=== PATIENT | male | born 1935 | race Caucasian/White ===

== ENCOUNTER 2018-05-31 17:54 | Inpatient (IN) | payer MEDICARE ==
--- NOTE | 2018-05-31 18:38 | EDM.PDOC ---
ED HPI GENERAL MEDICAL PROBLEM - General Chief Complaint: General Stated Complaint: POSSIBLE SEPSIS Time Seen by Provider: 05/31/18 18:22 Source of Information: Reports: Patient, Family History Limitations: Reports: No Limitations - History of Present Illness INITIAL COMMENTS - FREE TEXT/NARRATIVE: Has had increased confusion over the last 2 days He has infection to his left lower leg He has a fever Denies chest pain, shortness of breath; no calf pain (neg janice's) Is eating and drinking. Onset: Gradual Severity: Moderate Improves with: Reports: None Worsens with: Reports: None Left Leg Pain Score (Numeric/FACES): 6 - Related Data Allergies Allergy/AdvReac Type Severity Reaction Status Date / Time latex Allergy Rash Verified 05/31/18 18:25 Home Meds: Home Meds Bumetanide 1 mg PO DAILY 05/31/18 [History] Fluticasone/Vilanterol [Breo Ellipta 200-25 Mcg INH] 1 puff INH DAILY 05/31/18 [ History] Gabapentin [Neurontin] 300 mg PO TID 05/31/18 [History] Losartan [Cozaar] 100 mg PO DAILY 05/31/18 [History] Spironolactone [Aldactone] 25 mg PO DAILY 05/31/18 [History] Warfarin Sodium 5 mg PO DAILY 05/31/18 [History] acetaZOLAMIDE [Diamox] 250 mg PO BID 05/31/18 [History] Past Medical History HEENT History: Reports: Impaired Vision Cardiovascular History: Reports: Afib Respiratory History: Reports: COPD - Past Surgical History Musculoskeletal Surgical History: Reports: Hip Replacement Social & Family History - Tobacco Use Smoking Status *Q: Never Smoker - Caffeine Use Caffeine Use: Reports: Coffee - Recreational Drug Use Recreational Drug Use: No ED ROS GENERAL - Review of Systems Review Of Systems: See Below Constitutional: Reports: Fever, Chills Respiratory: Reports: No Symptoms Cardiovascular: Reports: No Symptoms GI/Abdominal: Reports: No Symptoms : Reports: No Symptoms Musculoskeletal: Reports: Leg Pain (lower left) Skin: Reports: Change in Color, Other (left LE, red, tender and swollen) Neurological: Reports: Confusion ED EXAM, GENERAL - Physical Exam Exam: See Below Exam Limited By: No Limitations General Appearance: Alert, Other (mild confusion) Eye Exam: Bilateral Eye: EOMI, PERRL Throat/Mouth: Normal Inspection, Normal Gums, Normal Oropharynx Head: Atraumatic, Normocephalic Neck: Normal Inspection, Supple, Non-Tender, Full Range of Motion Respiratory/Chest: No Respiratory Distress, Lungs Clear, Normal Breath Sounds, No Accessory Muscle Use, Chest Non-Tender Cardiovascular: Regular Rate, Rhythm, Other (bilateral LE edema, 2+ pitting) Peripheral Pulses: 1+: Posterior Tibial (L), Posterior Tibial (R), 3+: Dorsalis Pedis (L), Dorsalis Pedis (R) GI/Abdominal: Normal Bowel Sounds, Non-Tender Back Exam: Normal Inspection, Full Range of Motion Extremities: Leg Pain, Increased Warmth, Redness (LLE) Neurological: Alert, No Motor/Sensory Deficits, Confused Psychiatric: Normal Affect, Normal Mood Skin Exam: Warm, Dry, Intact Course - Vital Signs Last Recorded V/S: Last Vital Signs Temp 101.2 F H 05/31/18 19:25 Pulse 125 H 05/31/18 20:00 Resp 18 05/31/18 20:00 BP 140/74 05/31/18 20:00 Pulse Ox 91 L 05/31/18 20:00 - Orders/Labs/Meds Orders: Active Orders 24 hr Category Date Time Status Admission Status [Patient Status] [ADT] Routine ADT 05/31/18 20:15 Active Chest 1V Frontal [CR] Stat Exams 05/31/18 19:28 Ordered Head wo Cont [CT] Stat Exams 05/31/18 18:37 Taken Acetaminophen [Tylenol Extra Strength] Med 05/31/18 19:28 Active 1,000 mg PO Q12H PRN Sodium Chloride 0.9% [Normal Saline] 1,000 ml Med 05/31/18 18:45 Active IV ASDIRECTED Medication Orders Acetaminophen (Tylenol Extra Strength) 1,000 mg PO Q12H PRN PRN Reason: Pain Last Admin: 05/31/18 19:33 Dose: 1,000 mg Sodium Chloride (Normal Saline) 1,000 mls @ 75 mls/hr IV ASDIRECTED SHANTAL Last Admin: 05/31/18 19:20 Dose: 75 mls/hr Labs: Laboratory Tests 05/31/18 05/31/18 05/31/18 Range/Units 18:38 18:38 18:38 WBC 14.3 H (4.5-11.0) K/uL RBC 4.84 (4.30-5.90) M/uL Hgb 15.4 H (12.0-15.0) g/dL Hct 48.5 (40.0-54.0) % MCV 100 H (80-98) fL MCH 32 H (27-31) pg MCHC 32 (32-36) % Plt Count 234 (150-400) K/uL Neut % (Auto) 91 H (36-66) % Lymph % (Auto) 5 L (24-44) % [place] % (Auto) 5 (2-6) % Eos % (Auto) 0 L (2-4) % Baso % (Auto) 0 (0-1) % Sodium 141 (140-148) mmol/L Potassium 4.6 (3.6-5.2) mmol/L Chloride 105 (100-108) mmol/L Carbon Dioxide 31 (21-32) mmol/L Anion Gap 4.7 L (5.0-14.0) mmol/L BUN 27 H (7-18) mg/dL Creatinine 1.7 H (0.8-1.3) mg/dL Est Cr Clr Drug Dosing 32.41 mL/min Estimated GFR (MDRD) 39 L (>60) Glucose 110 H (74-106) mg/dL Lactic Acid (0.4-2.0) mmol/L Calcium 8.9 (8.5-10.1) mg/dL Total Bilirubin 0.8 (0.2-1.0) mg/dL AST 32 (15-37) U/L ALT 36 (12-78) U/L Alkaline Phosphatase 58 (46-116) U/L Troponin I < 0.017 (0.000-0.056) ng/mL NT-Pro-B Natriuret Pep 767 H (5-450) pg/mL Total Protein 7.3 (6.4-8.2) g/dL Albumin 3.2 L (3.4-5.0) g/dL Globulin 4.1 H (2.3-3.5) g/dL Albumin/Globulin Ratio 0.8 L (1.2-2.2) Urine Color Urine Appearance Urine pH (4.5-8.0) Ur Specific [place] (1.008-1.030) Urine Protein (NEGATIVE) mg/dL Urine Glucose (UA) (NEGATIVE) mg/dL Urine Ketones (NEGATIVE) mg/dL Urine Occult Blood (NEGATIVE) Urine Nitrite (NEGAITVE) Urine Bilirubin (NEGATIVE) Urine Urobilinogen (NORMAL) mg/dL Ur Leukocyte Esterase (NEGATIVE) Urine RBC (0-5) Urine WBC (0-5) Ur Epithelial Cells Amorphous Sediment Urine Bacteria Urine Mucus 05/31/18 05/31/18 Range/Units 18:38 18:53 WBC (4.5-11.0) K/uL RBC (4.30-5.90) M/uL Hgb (12.0-15.0) g/dL Hct (40.0-54.0) % MCV (80-98) fL MCH (27-31) pg MCHC (32-36) % Plt Count (150-400) K/uL Neut % (Auto) (36-66) % Lymph % (Auto) (24-44) % [place] % (Auto) (2-6) % Eos % (Auto) (2-4) % Baso % (Auto) (0-1) % Sodium (140-148) mmol/L Potassium (3.6-5.2) mmol/L Chloride (100-108) mmol/L Carbon Dioxide (21-32) mmol/L Anion Gap (5.0-14.0) mmol/L BUN (7-18) mg/dL Creatinine (0.8-1.3) mg/dL Est Cr Clr Drug Dosing mL/min Estimated GFR (MDRD) (>60) Glucose (74-106) mg/dL Lactic Acid 2.1 H (0.4-2.0) mmol/L Calcium (8.5-10.1) mg/dL Total Bilirubin (0.2-1.0) mg/dL AST (15-37) U/L ALT (12-78) U/L Alkaline Phosphatase (46-116) U/L Troponin I (0.000-0.056) ng/mL NT-Pro-B Natriuret Pep (5-450) pg/mL Total Protein (6.4-8.2) g/dL Albumin (3.4-5.0) g/dL Globulin (2.3-3.5) g/dL Albumin/Globulin Ratio (1.2-2.2) Urine Color Yellow Urine Appearance Clear Urine pH 5.0 (4.5-8.0) Ur Specific [place] 1.010 (1.008-1.030) Urine Protein Negative (NEGATIVE) mg/dL Urine Glucose (UA) Normal (NEGATIVE) mg/dL Urine Ketones Negative (NEGATIVE) mg/dL Urine Occult Blood Moderate (NEGATIVE) Urine Nitrite Negative (NEGAITVE) Urine Bilirubin Negative (NEGATIVE) Urine Urobilinogen Normal (NORMAL) mg/dL Ur Leukocyte Esterase Negative (NEGATIVE) Urine RBC 10-20 H (0-5) Urine WBC 0-5 (0-5) Ur Epithelial Cells Rare Amorphous Sediment Not seen Urine Bacteria Few Urine Mucus Few Meds: Medications Generic Name Dose Route Start Last Admin Trade Name Freq PRN Reason Stop Dose Admin Acetaminophen 1,000 mg 05/31/18 19:28 05/31/18 19:33 Tylenol Extra Strength PO 1,000 mg Q12H PRN Administration Pain Sodium Chloride 1,000 mls @ 75 mls/hr 05/31/18 18:45 05/31/18 19:20 Normal Saline IV 75 mls/hr ASDIRECTED SHANTAL Administration Discontinued Medications Generic Name Dose Route Start Last Admin Trade Name Freq PRN Reason Stop Dose Admin Cefazolin Sodium Confirm 05/31/18 19:39 Ancef Administered 05/31/18 19:40 Dose 1 gm .ROUTE .STK-MED ONE Cefazolin Sodium/Dextrose 1 gm 50 mls @ 100 mls/hr 05/31/18 22:00 / Premix IV Q8HR [facility] Cefazolin Sodium/Dextrose 2 gm 50 mls @ 100 mls/hr 05/31/18 19:40 05/31/18 19 :42 / Premix IV 05/31/18 20:09 100 mls/hr ONETIME ONE Administration - Re-Assessments/Exams Free Text/Narrative Re-Assessment/Exam: 05/31/18 19:28 IVF at 50ml; temp of 102. Tylenol 1 G ordered; he is alert/ mild confusion. Free Text/Narrative Re-Assessment/Exam: 05/31/18 19:33 Ancef 1 g ordered. Free Text/Narrative Re-Assessment/Exam: 05/31/18 20:40 Dr. Hernandez called for admission; given verbal orders to admit to ICU, sepsis protocol and he will come and see the patient. 05/31/18 20:[address] is negative Departure - Departure Time of Disposition: 21:00 Disposition: Admitted As Inpatient 66 Condition: Fair Clinical Impression: Sepsis Cellulitis Qualifiers: Site of cellulitis: extremity Site of cellulitis of extremity: lower extremity Laterality: left Qualified Code(s): L03.116 - Cellulitis of left lower limb Clinical Impression: (Ruled Out): Sepsis affecting skin - Discharge Information Referrals: PCP,None [Primary Care Provider] - Forms: ED Department Discharge - Problem List & Annotations (1) Cellulitis SNOMED Code(s): 629490992 Code(s): L03.90 - CELLULITIS, UNSPECIFIED Status: Acute Priority: Medium Current Visit: Yes Qualifiers: Site of cellulitis: extremity Site of cellulitis of extremity: lower extremity Laterality: left Qualified Code(s): L03.116 - Cellulitis of left lower limb - My Orders Last 24 Hours: My Active Orders 05/31/18 18:37 Head wo Cont [CT] Stat 05/31/18 18:45 Sodium Chloride 0.9% [Normal Saline] 1,000 ml IV ASDIRECTED 05/31/18 19:28 Chest 1V Frontal [CR] Stat Acetaminophen [Tylenol Extra Strength] 1,000 mg PO Q12H PRN - Assessment/Plan Last 24 Hours: My Active Orders 05/31/18 18:37 Head wo Cont [CT] Stat 05/31/18 18:45 Sodium Chloride 0.9% [Normal Saline] 1,000 ml IV ASDIRECTED 05/31/18 19:28 Chest 1V Frontal [CR] Stat Acetaminophen [Tylenol Extra Strength] 1,000 mg PO Q12H PRN
[2018-05-31] MEDS: Sodium Chloride 0.9% 1,000 ML IV SCH (19:20)
[2018-05-31] MEDS ORDERED: Acetaminophen 500 MG Tab PO PRN (19:28)
[2018-05-31] MEDS ORDERED: ceFAZolin 1 GM Vial ONE (19:39)
[2018-05-31] MEDS ORDERED: ceFAZolin 2 GM in Premix Bag 1 BAG IV ONE (19:40)
[2018-05-31] MEDS ORDERED: ceFAZolin 1 GM in Premix Bag 1 BAG IV SCH (22:00)
[2018-05-31] MEDS ORDERED: Acetaminophen 325 MG Tab PO PRN (22:07)
--- NOTE | 2018-06-01 03:09 | HP ---
IDENTIFYING DATA: Mack Tracey is an 82-year-old male from [place], [place]. CHIEF COMPLAINT: Cellulitis of the leg. HISTORY OF PRESENT ILLNESS: The patient and family noted 2-day history of developing pain and redness at the distal aspect of the left leg. He has had subjective fever as well as weakness, and reported confusion today. He presented to the [facility] and was transferred to the emergency room for evaluation. He had evidence of leukocytosis with labs otherwise being unremarkable. Borderline elevated lactic acid was reported. He has chronic renal insufficiency, confirmed by lab work with periods of confusion, delirium, and inflammatory changes of the left leg noted. He was admitted for further parenteral antibiotics and monitoring. Denies trauma to the leg. No history of cellulitis. He does have chronic edematous changes in the lower extremities. Denies a history of peripheral vascular disease, claudication, nonhealing ulcers, or paresthesias in the feet. He is on gabapentin for reasons of lumbar spine disease with radiating pain into the proximal legs. PAST MEDICAL HISTORY: Previous surgery by the patient's report includes tonsillectomy, cholecystectomy, and appendectomy. Additionally, he has a history of congestive heart failure with chronic diuretic therapy, hypertension, and chronic atrial fibrillation as well as musculoskeletal low back pain. He reports COPD secondary to previous tobacco use with use of daily inhalers. No recent increased shortness of breath, cough, or purulent sputum production. ALLERGIES: REPORTED TO LATEX. MEDICATIONS: Bumetanide 1 mg daily, Breo Ellipta 1 puff daily, gabapentin 300 mg t.i.d., losartan 100 mg daily, spironolactone 25 mg daily, warfarin 5 mg daily, acetazolamide 250 mg b.i.d., metoprolol succinate 100 mg daily. He was administered Rocephin 1 g IM in the clinic setting prior to transfer to the emergency room. HABITS: Remote history of tobacco use abstaining for 20 years' time. Caffeine intake averages 2 cups of coffee daily. Alcohol use of 1 drink per day. IMMUNIZATIONS: The patient reports he does receive annual influenza vaccine, believes he has had completed pneumococcal vaccine series. 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 He is visiting the family in the [place] area. Typically performs ADLs independently. He is able to drive. FAMILY HISTORY: Denies other familial history of acute infections or recent illnesses. REVIEW OF SYSTEMS: NEUROLOGIC: Hearing loss with bilateral hearing aids are noted. He does wear corrective lenses. Denies cataracts or glaucoma. No history of stroke, seizures, or focal weakness. No headache. CARDIAC: History of congestive heart failure and chronic atrial fibrillation. He denies a history of [place], angina, or diabetes. Does have a history of hypertension. RESPIRATORY: Reports COPD secondary to previous tobacco use, none currently. No recent upper respiratory infections, cough, or sputum production. Does not exercise routinely. GI: Denies dyspepsia, nausea, emesis, hepatitis, diarrhea, melena, or hematochezia. : Rises 0 to 1 times nightly to void. No incontinence. Reported history of renal insufficiency. MUSCULOSKELETAL: Previous left total hip arthroplasty. No current arthralgias reported by the patient. PHYSICAL EXAMINATION: GENERAL: Appearance is that of an elderly male, now resting comfortably in bed. INITIAL VITAL SIGNS: Temperature 101.2 degrees Fahrenheit, pulse 125, respiratory rate 18, blood pressure 140/74, O2 sats 91% on room air. HEENT: Bilateral hearing aids. Canals and TMs are normal. Pupils are reactive to light. Sclerae anicteric. No nasal congestion. Dentures are worn. No other oropharyngeal lesions. NECK: Brisk carotid pulses. No bruits, JVD, adenopathy, or thyromegaly. LUNGS: Symmetrical, clear, nontachypneic. No wheezes, rales, or rhonchi. HEART: Irregular, mildly tachycardic. No murmurs or gallops noted. Atrial fibrillation by cardiac monitoring. ABDOMEN: Obese, soft, nontender, nondistended. Active sounds. No organomegaly. Good femoral pulses. AND RECTAL: Omitted. EXTREMITIES: Good radial, posterior tibial, and dorsal pedal pulses. He has bilateral pitting edema. Previous total hip arthroplasty with incisional scar evident. No palpable tenderness at the right leg with skin intact. He has cellulitic changes at the distal left leg with tenderness to palpation. No open skin lesions or active drainage. LABORATORY DATA: On admission; WBC 14.3, hemoglobin 15.4, hematocrit 48.5, platelet count 234,000 with 91 neutrophils, 5 lymphocytes, 5 monos, 0 eosinophils. Sodium 141, potassium 4.6, BUN 27, creatinine 1.7, GFR 39, glucose 110 in a nonfasting state. Alkaline phosphatase 58, AST 32. Troponin at less than 0.017. ProBNP, moderately elevated at 767. Lactic acid, borderline elevated at 2.1. Urinalysis reveals positive microscopic hematuria with moderate occult blood, negative for protein and ketones. IMPRESSIONS: 1. Acute bacterial cellulitis of the left leg. 2. History of chronic congestive heart failure with dependent edema. 3. Chronic atrial fibrillation, with Coumadin anticoagulant therapy. 4. Hypertension. 5. Reported obstructive pulmonary disease secondary to remote tobacco use, now abstaining. 6. 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 7. Latex allergies. 8. Surgeries include remote tonsillectomy, cholecystectomy, appendectomy, and left total hip arthroplasty. 9. Confusion secondary to febrile presentation and acute infection with borderline elevated lactic acid suggesting early sepsis. PLAN: The patient is admitted to the hospital for continued parenteral therapies including IV fluids and antibiotics. Blood cultures have been obtained and are pending. We will continue with IV Ancef, provide his usual oral maintenance medications with the exception of losartan held in light of mildly depressed blood pressure. The patient has had periods of waxing and waning confusion. Observe for deteriorating mental status. Note that CT imaging at the time of admission showed no evidence of acute neurologic event. We will provide a low-sodium diet. Monitor blood sugars and offer Tylenol on a p.r.n. basis for fever and general discomfort. Full code status is implemented. Anticipate discharge to home on outpatient antibiotic therapy in 48 to 72 hours if the patient shows stabilization and improvement. Mark Hernandez MD /[id number]
[2018-06-01] MEDS ORDERED: ceFAZolin 1 GM in Sodium Chloride 0.9% 50 ML IV SCH (04:00)
--- NOTE | 2018-06-01 06:54 | PN ---
DATE OF SERVICE: 06/01/2018 SUBJECTIVE: This is an 82-year-old male with history of chronic atrial fibrillation, obstructive pulmonary disease, and congestive heart failure, was admitted with cellulitic changes of the left leg with accompanying pain, fever, and disorientation requiring inpatient therapy. Through the night, he has had ongoing discomfort at the leg though has rested intermittently. Fever is resolved. Offers no other complaints. He remains in chronic atrial fibrillation with controlled rate. No acute respiratory symptoms noted. OBJECTIVE: VITAL SIGNS: Temperature 35.7 degrees, pulse rate 78, atrial fibrillation by cardiac monitoring with irregularly irregular rhythm. Blood pressure 122/61, respiratory rate 14 with O2 saturations of 93% on supplemental O2 at 2 liters by nasal cannula. NECK: Brisk irregular carotid pulses. No JVD. LUNGS: Clear, nontachypneic. No wheezes or rales heard. HEART: Irregular without murmurs or gallops. ABDOMEN: Obese, soft, and nontender. No organomegaly. EXTREMITIES: Chronic dependent edema, unchanged. Cellulitic changes of the distal left leg again are noted. No current open skin lesions. LABORATORY DATA: A.m. lab work including CBC and metabolic panel are pending. IMPRESSION AND PLAN: 1. Cellulitis of the left leg. Continue with parenteral antibiotics. Blood cultures have been drawn and results are pending. Allow light activity as tolerated with assistance of nursing staff. Review labs on completion. 2. Chronic atrial fibrillation with congestive heart failure. The patient remains on metoprolol for rate control. His home therapy including losartan has been held in light of [id number] blood pressures at the time of admission. If blood pressure rises, we will resume use of losartan during the hospital stay. Pro-time and INR to be monitored with Coumadin anticoagulant therapy. 3. Chronic obstructive pulmonary disease. We will provide his daily maintenance therapy with use of Breo Ellipta. No respiratory impairment is currently noted. 4. Periods of confusion secondary to febrile state, now resolved. Continue to monitor for relapsing cognitive changes. Mark Hernandez MD /[id number]
[2018-06-01] MEDS ORDERED: Formoterol/Mometasone 200-5 MCG 8.8 GM Inhaler IH SCH (07:00)
[2018-06-01] MEDS: Formoterol/Mometasone 200-5 MCG 8.8 GM Inhaler IH SCH ×2 (08:47→20:00)
[2018-06-01] MEDS: Metoprolol Succinate 50 MG Tab.ER PO SCH (08:50)
[2018-06-01] MEDS: Bumetanide 1 MG Tab PO SCH (08:50)
[2018-06-01] MEDS: Spironolactone 25 MG Tab PO SCH (08:50)
[2018-06-01] MEDS: acetaZOLAMIDE 250 MG Tab PO SCH ×2 (08:50→20:00)
[2018-06-01] MEDS: Gabapentin 300 MG Cap PO SCH ×3 (08:50→20:01)
[2018-06-01] MEDS ORDERED: Warfarin 5 MG Tab PO SCH ×2 (09:00→13:00)
[2018-06-01] MEDS: ceFAZolin 1 GM in Premix Bag 1 BAG IV SCH ×2 (11:22→19:41)
[2018-06-01] MEDS: Sodium Chloride 0.9% 1,000 ML IV SCH (13:38)
[2018-06-01] MEDS: Lactobacillus Rhamnosus GG (Probiotic) Cap PO SCH (20:00)
[2018-06-02] MEDS: ceFAZolin 1 GM in Premix Bag 1 BAG IV SCH ×2 (03:12→11:07)
[2018-06-02] MEDS: acetaZOLAMIDE 250 MG Tab PO SCH (08:20)
[2018-06-02] MEDS: Metoprolol Succinate 50 MG Tab.ER PO SCH (08:20)
[2018-06-02] MEDS: Lactobacillus Rhamnosus GG (Probiotic) Cap PO SCH (08:21)
[2018-06-02] MEDS: Gabapentin 300 MG Cap PO SCH (08:21)
[2018-06-02] MEDS: Spironolactone 25 MG Tab PO SCH (08:21)
[2018-06-02] MEDS: Bumetanide 1 MG Tab PO SCH (08:21)
[2018-06-02] MEDS: Formoterol/Mometasone 200-5 MCG 8.8 GM Inhaler IH SCH (08:23)
--- NOTE | 2018-06-02 10:37 | PCM.DCSUM1 ---
Discharge Summary - Hospital Course Brief History: 82-year-old male with history of congestive heart failure, chronic atrial fibrillation who presented with left lower extremity swelling, redness, fever and some confusion. He was admitted for management of left leg cellulitis and sepsis. Diagnosis: Stroke: No - Discharge Data Discharge Date: 06/02/18 Discharge Disposition: Home, Self-Care 01 Condition: Good - Discharge Diagnosis/Problem(s) (1) Cellulitis of left lower extremity SNOMED Code(s): 098500124 ICD Code: L03.116 - CELLULITIS OF LEFT LOWER LIMB Status: Acute (2) Sepsis SNOMED Code(s): 02514226 ICD Code: A41.9 - SEPSIS, UNSPECIFIED ORGANISM Status: Acute Qualifiers: Sepsis type: sepsis due to unspecified organism Qualified Code(s): A41.9 - Sepsis, unspecified organism (3) CHF (congestive heart failure), NYHA class II SNOMED Code(s): 808626068, 491954918 ICD Code: I50.9 - HEART FAILURE, UNSPECIFIED Status: Chronic Qualifiers: Congestive heart failure type: unspecified Qualified Code(s): I50.9 - Heart failure, unspecified (4) CKD (chronic kidney disease), stage III SNOMED Code(s): 487969231 ICD Code: N18.3 - CHRONIC KIDNEY DISEASE, STAGE 3 (MODERATE) Status: Chronic (5) Chronic a-fib SNOMED Code(s): 325166811 ICD Code: I48.2 - CHRONIC ATRIAL FIBRILLATION Status: Chronic - Patient Summary/Data Hospital Course: Damon presented initially to the walk-in clinic with fever and left lower leg redness, pain and swelling. He was also noted to be confused. There was concern for severe infection and possibly sepsis and he was sent to the emergency room for further evaluation. Workup in the emergency room did suggest sepsis secondary to left lower extremity cellulitis. He was started on cefazolin and given IV fluids and admitted to the hospital for further treatment. Overnight following admission his ultimate mental status did improve. Lactic acid level normalized. His blood pressure was on the low side of normal but did stabilize after fluid challenges. Antibiotic treatment was continued and IV fluids were decreased. Over the next 24 hours he had additional improvement. His sepsis resolved. His fevers resolved. Warmth and pain of the left lower extremity improved significantly. He does still have some discoloration but it appears to be more venous stasis than cellulitis. Blood pressure has normalized. In general he is doing much better. He is a little bit weak but he is able to get out of bed and out of the chair on his own. Once he is on his feet he is able to ambulate effectively. I think he is safe for outpatient management at this time. The plan is for 8 additional days of antibiotic therapy as an outpatient. Chronic medical conditions including atrial fibrillation and congestive heart failure are stable. Cultures have been negative as of the time of discharge. - Patient Instructions Diet: Heart Healthy Diet Activity: As Tolerated Showering/Bathing: May Shower Notify Provider of: Fever, Increased Pain, Nausea and/or Vomiting Other/Special Instructions: 1. You were in the hospital for management of left lower extremity cellulitis. The infection was severe enough that you had sepsis syndrome. The sepsis has resolved an your infection is improving with current antibiotic therapy. I would recommend ongoing antibiotic therapy with cephalexin (Keflex). You should take 500 mg 3 times daily with food. Your next dose is due tonight. I would also recommend that you elevate your leg at least 4 times daily. Elevation will help reduce the swelling and make the infection easier to treat. You could consider taking a probiotic twice daily while you are taking the antibiotics. This can help reduce your risk of antibiotic associated diarrhea. You can ask your pharmacist to help choose a good one for you. 2. Continue your usual home medications as previously prescribed. 3. Follow up with a provider at [facility] in 3-5 days to recheck your infection and ensure that you continue to get better. 4. Seek medical attention if you have severe pain in your leg, fever greater than 101 or if you develop significant vomiting or diarrhea. - Discharge Plan Prescriptions/Med Rec: Cephalexin 500 mg PO TID #25 capsule Home Medications: Home Meds Bumetanide 1 mg PO DAILY 05/31/18 [History] Fluticasone/Vilanterol [Breo Ellipta 200-25 Mcg INH] 1 puff INH DAILY 05/31/18 [ History] Gabapentin [Neurontin] 300 mg PO TID 05/31/18 [History] Losartan [Cozaar] 100 mg PO DAILY 05/31/18 [History] Metoprolol Succinate [Toprol XL 100mg] 100 mg PO DAILY 05/31/18 [History] Spironolactone [Aldactone] 25 mg PO DAILY 05/31/18 [History] Warfarin Sodium 5 mg PO DAILY 05/31/18 [History] acetaZOLAMIDE [Diamox] 250 mg PO BID 05/31/18 [History] Cephalexin 500 mg PO TID #25 capsule 06/02/18 [Rx] Patient Handouts: Cellulitis, Adult, Cephalexin tablets or capsules Referrals: PCP,None [Primary Care Provider] - (please schedule an appointment in the next 3-5 days with [facility] f/u ) - Discharge Summary/Plan Comment DC Time >30 min.: No (25) - Patient Data Vitals - Most Recent: Last Vital Signs Temp 36.9 C 06/02/18 07:17 Pulse 78 06/02/18 08:20 Resp 16 06/02/18 07:17 BP 141/68 H 06/02/18 08:20 Pulse Ox 93 L 06/02/18 07:17 Weight - Most Recent: 131.95 kg I&O - Last 24 hours: Intake & Output 06/01/18 06/02/18 06/02/18 22:59 06:59 14:59 Intake Total 730 778 Output Total 625 1100 625 Balance 334 -744 -661 Lab Results - Last 24 hrs: Laboratory Results - last 24 hr 06/02/18 06/02/18 06/02/18 Range/Units 05:06 05:06 05:06 WBC 13.0 H (4.5-11.0) K/uL RBC 4.04 L (4.30-5.90) M/uL Hgb 12.8 (12.0-15.0) g/dL Hct 41.9 (40.0-54.0) % MCV 104 H (80-98) fL MCH 32 H (27-31) pg MCHC 31 L (32-36) % Plt Count 172 (150-400) K/uL PT 18.4 H (9.5-12.0) sec INR 1.73 H (0.80-1.20) Sodium 142 (140-148) mmol/L Potassium 4.0 (3.6-5.2) mmol/L Chloride 107 (100-108) mmol/L Carbon Dioxide 27 (21-32) mmol/L Anion Gap 8.0 (5.0-14.0) mmol/L BUN 26 H (7-18) mg/dL Creatinine 1.6 H (0.8-1.3) mg/dL Est Cr Clr Drug Dosing 34.44 mL/min Estimated GFR (MDRD) 42 L (>60) Glucose 115 H (74-106) mg/dL Calcium 8.5 (8.5-10.1) mg/dL Med Orders - Current: Current Medications Acetaminophen (Tylenol) 650 mg PO Q4H PRN PRN Reason: Pain Last Admin: 06/01/18 19:59 Dose: 650 mg Acetazolamide (Diamox) 250 mg PO BID [facility] Last Admin: 06/02/18 08:20 Dose: 250 mg Bumetanide (Bumex) 1 mg PO DAILY [facility] Last Admin: 06/02/18 08:21 Dose: 1 mg Gabapentin (Neurontin) 300 mg PO TID [facility] Last Admin: 06/02/18 08:21 Dose: 300 mg Cefazolin Sodium/Dextrose 1 gm (/ Premix) 50 mls @ 100 mls/hr IV Q8H [facility] Last Admin: 06/02/18 03:12 Dose: 100 mls/hr Lactobacillus Rhamnosus (Culturelle) 1 cap PO BID [facility] Last Admin: 06/02/18 08:21 Dose: 1 cap Metoprolol Succinate (Toprol Xl) 100 mg PO DAILY [facility] Last Admin: 06/02/18 08:20 Dose: 100 mg Mometasone Furoate/Formoterol Fumar (Dulera 200-5 Mcg) 0 puff IH BIDRT [facility] Last Admin: 06/02/18 08:23 Dose: 2 puff Spironolactone (Aldactone) 25 mg PO DAILY [facility] Last Admin: 06/02/18 08:21 Dose: 25 mg Warfarin Sodium (Coumadin) 5 mg PO DAILY@1300 [facility] Last Admin: 06/01/18 13:15 Dose: 5 mg Discontinued Medications Acetaminophen (Tylenol Extra Strength) 1,000 mg PO Q12H PRN PRN Reason: Pain Last Admin: 05/31/18 19:33 Dose: 1,000 mg Cefazolin Sodium (Ancef) Confirm Administered Dose 1 gm .ROUTE .STK-MED ONE Stop: 05/31/18 19:40 Last Admin: 05/31/18 20:55 Dose: Not Given Sodium Chloride (Normal Saline) 1,000 mls @ 50 mls/hr IV ASDIRECTED [facility] Last Admin: 06/01/18 13:38 Dose: 50 mls/hr Cefazolin Sodium/Dextrose 1 gm (/ Premix) 50 mls @ 100 mls/hr IV Q8HR [facility] Cefazolin Sodium/Dextrose 2 gm (/ Premix) 50 mls @ 100 mls/hr IV ONETIME ONE Stop: 05/31/18 20:09 Last Admin: 05/31/18 19:42 Dose: 100 mls/hr Cefazolin Sodium 1 gm/ Sodium (Chloride) 50 mls @ 100 mls/hr IV Q8H [facility] Last Admin: 06/01/18 03:43 Dose: 100 mls/hr - Exam Quality Assessment: Denies: Supplemental Oxygen General: Reports: Alert, Oriented, Cooperative, No Acute Distress Lungs: Reports: Normal Respiratory Effort GI/Abdominal Exam: No Distention Extremities: Pedal Edema (left lower extremity. This extends to the mid castro). No: Increased Warmth (.) Skin: Reports: Warm, Dry, Other (chronic venous stasis type discoloration of the left anterior castro) Psy/Mental Status: Reports: Alert, Normal Affect
--- NOTE | 2018-06-03 08:32 | CR ---
CHEST: Portable CLINICAL HISTORY:Fever COMPARISON:None FINDINGS: Heart size and pulmonary vascularity are normal. There are atherosclerotic changes in the aorta.. No infiltrate effusion or pneumothorax seen.. IMPRESSION: No acute cardiopulmonary process
== END 2018-06-02 12:17 | disposition home or self-care (01) | DRG 872 ==
LOC: JP.ED 17:54 → JP.ICU 20:38 → JP.MS 06-01 14:00
PROVIDERS: ADMIT Family Medicine; ATTEND Internal Medicine
DX: A41.9 Sepsis, unspecified organism (principal); L03.116 Cellulitis of left lower limb; I13.0 Hypertensive heart and chronic kidney disease with heart failure and stage 1 through stage 4 chronic kidney disease, or unspecified chronic kidney disease; I50.9 Heart failure, unspecified; N18.3 Chronic kidney disease, stage 3 (moderate); I48.2 Chronic atrial fibrillation; J44.9 Chronic obstructive pulmonary disease, unspecified; R41.0 Disorientation, unspecified; R50.9 Fever, unspecified; M79.662 Pain in left lower leg; Z79.01 Long term (current) use of anticoagulants; Z87.891 Personal history of nicotine dependence; M54.9 Dorsalgia, unspecified; H91.90 Unspecified hearing loss, unspecified ear; H54.7 Unspecified visual loss; Z96.642 Presence of left artificial hip joint; M53.87 Other specified dorsopathies, lumbosacral region; Z91.040 Latex allergy status
CPT/HCPCS: 36415; 70450; 71045 ×2; 80053; 81001; 83605; 83880; 84484; 85025; 96361; 96365; 99285; A9270; J0690; J7030; 80048; 85027; 85610; J7050